=== PATIENT | male | born 1990 | race Hispanic/Latino ===

== ENCOUNTER 2016-10-10 22:01 | Emergency (ER) | payer BC, OTHER ==
[2016-10-10] MEDS ORDERED: LIDOCAINE VIS-MYLANTA 30 ML UD PO ONE (22:15)
[2016-10-10] MEDS ORDERED: ALPRAZolam 0.25 MG TAB PO ONE (22:15)
[2016-10-10 22:37] VITALS: O2SAT 98
--- NOTE | 2016-10-10 22:46 | RAD ---
EXAM DESCRIPTION: Chest,1 View CLINICAL HISTORY: 25 years Male chest pain COMPARISON: None. FINDINGS: The cardiomediastinal silhouette appears unremarkable. No consolidating infiltrates or pleural effusions. No pneumothorax. Mild elevation of the right hemidiaphragm. IMPRESSION: No acute abnormality is identified. Electronically signed by: Villa Molina MD 10/10/2016 10:45 PM CDT
[2016-10-10] MEDS ORDERED: POTASSIUM CHLORIDE ELIXIR 20 MEQ/15 ML UD PO ONE (22:51)
--- NOTE | 2016-10-11 05:25 | ED.PDOC ---
History of Present Illness - General Chief Complaint: Chest Pain/AL Time Seen by Provider: 10/10/16 22:09 Source: patient Exam Limitations: no limitations - History of Present Illness Initial Comments: the patient is a 25-year-old male brought to the ER by EMS after having developed central chest discomfort with tingling in both arms after he was found by police. Patient has numerous social stressors. Chest discomfort rated at a 5 out of 10 at its worst down to a 3 out of 10 but, his arrival. He did receive an aspirin and nitroglycerin with EMS. EKG on arrival looked reassuring. Timing/Duration: 1/2 hour Severity: moderate Improving Factors: nothing Worsening Factors: nothing Associated Symptoms: chest pain, nausea/vomiting Allergies/Adverse Reactions: Allergies NO KNOWN ALLERGY Allergy (Unverified 10/10/16 22:24) Review of Systems - Review of Systems Constitutional: States: no symptoms reported EENTM: States: no symptoms reported Respiratory: States: no symptoms reported Cardiology: States: chest pain Gastrointestinal/Abdominal: States: no symptoms reported Genitourinary: States: no symptoms reported Musculoskeletal: States: see HPI Skin: States: no symptoms reported Neurological: States: see HPI, anxiety Hematologic/Lymphatic: States: no symptoms reported All other Systems: No Change from Baseline Past Medical History (General) - Patient Medical History Hx Asthma: No Hx Congestive Heart Failure: No Hx Diabetes: No Hx MRSA: No MRSA Source:: Wound - Vaccination History Hx Tetanus, Diphtheria Vaccination: No Hx Influenza Vaccination: No Hx Pneumococcal Vaccination: No Immunizations Up to Date: Yes - Social History Hx Tobacco Use: No Hx Alcohol Use: No Hx Substance Use: No Hx Substance Use Treatment: No Hx Depression: No Feels Threatened In Home Enviroment: No Feels Threatened In a Relationship: No Hx Physical Abuse: No Hx Emotional Abuse: No Hx Suspected Abuse: No Family Medical History - Family History Mother Family History: Unknown Living Status: Still Living Hx Cardiac Disease: Yes Physical Exam - Physical Exam General Appearance: Alert, Anxious Eye Exam: bilateral normal Ears, Nose, Throat: normal ENT inspection, normal pharynx Neck: non-tender, full range of motion, supple, normal inspection Respiratory: chest non-tender, lungs clear, normal breath sounds, no respiratory distress, no accessory muscle use Cardiovascular/Chest: normal peripheral pulses, regular rate, rhythm, no edema Peripheral Pulses: radial,right: 2+, radial,left: 2+, dorsalis pedis,right: 2+, dorsalis pedis,left: 2+ Gastrointestinal/Abdominal: non tender, soft Rectal Exam: deferred Back Exam: normal inspection, no CVA tenderness Extremity: normal range of motion, non-tender, normal inspection, no pedal edema , normal capillary refill Neurologic: no motor/sensory deficits, alert, oriented x 3, other - he is anxious Skin Exam: normal color Comments: Vital Signs - 24 hr 10/10/16 10/10/16 10/10/16 22:09 22:10 22:32 Temperature 98 F 98 F Pulse Rate Pulse Rate [ 91 H 90 97 H tele] Respiratory 18 18 Rate Blood Pressure 135/77 144/92 [right upper arm] O2 Sat by Pulse 97 98 Oximetry 10/10/16 10/11/16 10/11/16 23:30 00:51 02:44 Temperature 98 F 97 F L 98 F Pulse Rate 86 60 Pulse Rate [ 82 86 60 tele] Respiratory 20 18 14 Rate Blood Pressure 144/72 148/70 107/52 [right upper arm] O2 Sat by Pulse 98 98 98 Oximetry 10/11/16 05:00 Temperature 98 F Pulse Rate 60 Pulse Rate [ 60 tele] Respiratory 16 Rate Blood Pressure 110/64 [right upper arm] O2 Sat by Pulse 98 Oximetry Progress - Progress Progress: 10/11/16 05:26 the patient is a 25-year-old male who presented to the emergency room secondary to chest pain that developed during a traffic stop by the police. Clinical symptoms are most consistent with an anxiety attack. The patient is doing better at this time. 3 sets of cardiac enzymes have been negative. EKG and chest x-ray are reassuring. He needs to follow-up with his primary care doctor early this coming week. ER warnings were given for any acute worsening. - Results/Orders Results/Orders: Laboratory Tests 10/10/16 10/10/16 10/10/16 22:22 22:22 22:22 WBC 6.5 RBC 5.38 Hgb 15.7 Hct 47.0 MCV 87.3 MCH 29.1 MCHC 33.4 RDW 13.1 Plt Count 241 MPV 8.7 Absolute Neuts (auto) 3.70 Absolute Lymphs (auto) 2.10 Absolute Monos (auto) 0.60 Absolute Eos (auto) 0.10 Absolute Basos (auto) 0.00 Neutrophils % 57.7 Lymphocytes % 31.6 Monocytes % 8.7 Eosinophils % 1.4 Basophils % 0.6 PT 11.2 INR 0.990 PTT (SP) 34.3 D-Dimer, Quantitative < 230 Sodium 140 Potassium 3.3 L Chloride 106 Carbon Dioxide 25 Anion Gap 12.3 BUN 16 Creatinine 0.75 BUN/Creatinine Ratio 21.3 H Random Glucose 113 H Serum Osmolality 281.4 Calcium 9.6 Total Bilirubin 0.3 AST 29 ALT 37 Alkaline Phosphatase 79 Creatine Kinase 446 H* CK-MB (CK-2) 2.9 CK-MB (CK-2) % Not Reportable Troponin I < 0.02 B-Natriuretic Peptide 13.3 Serum Total Protein 8.3 H Albumin 4.8 Globulin 3.5 Albumin/Globulin Ratio 1.4 10/11/16 10/11/16 01:00 04:30 WBC RBC Hgb Hct MCV MCH MCHC RDW Plt Count MPV Absolute Neuts (auto) Absolute Lymphs (auto) Absolute Monos (auto) Absolute Eos (auto) Absolute Basos (auto) Neutrophils % Lymphocytes % Monocytes % Eosinophils % Basophils % PT INR PTT (SP) D-Dimer, Quantitative Sodium Potassium Chloride Carbon Dioxide Anion Gap BUN Creatinine BUN/Creatinine Ratio Random Glucose Serum Osmolality Calcium Total Bilirubin AST ALT Alkaline Phosphatase Creatine Kinase 376 H* 313 H* CK-MB (CK-2) 2.3 2.1 CK-MB (CK-2) % Not Reportable Not Reportable Troponin I < 0.02 < 0.02 B-Natriuretic Peptide Serum Total Protein Albumin Globulin Albumin/Globulin Ratio chest x-ray shows no evidence of mediastinal widening or fluid overload. No pneumothorax or infiltrate. EKG shows normal sinus rhythm with no acute ST segment changes concerning for ischemia. Normal axis. Departure - Departure Clinical Impression: Anxiety attack Chest pain Qualifiers: Chest pain type: other chest pain Qualified Code(s): R07.89 - Other chest pain ; R07.8 - Other chest pain Disposition: Discharge to Home or Self Care Condition: Fair Departure Forms: ED Discharge - Pt. Copy, Patient Portal Self Enrollment Instructions: Anxiety and Panic Attacks (Alternative Therapy) Diet: regular diet Activity: increase activity as tolerated Additional Instructions: the patient is a 25-year-old male who presented to the emergency room secondary to chest pain that developed during a traffic stop by the police. Clinical symptoms are most consistent with an anxiety attack. The patient is doing better at this time. 3 sets of cardiac enzymes have been negative. EKG and chest x-ray are reassuring. He needs to follow-up with his primary care doctor early this coming week. ER warnings were given for any acute worsening.
[2016-10-11 05:40] VITALS: BP 106/63; TEMP 98.1
== END 2016-10-11 05:40 | disposition home or self-care (01) ==
LOC: ER 22:01
DX: F41.0 Panic disorder [episodic paroxysmal anxiety] (principal); R07.89 Other chest pain